=== PATIENT | male | born 1990 | race African-American/Black ===

== ENCOUNTER 2017-06-26 12:26 | Emergency (ER) | payer SELFPAY ==
[~2017-06-26] VITALS: Ht 182.9 cm; Wt 75.0 kg
[2017-06-26 12:31] VITALS: BP 146/87; PULSE 75; RESP 16; TEMP 97.8; O2SAT 100
--- NOTE | 2017-06-26 12:57 | PD ---
HPI Chief Complaint: Injury Time Seen by Provider: 12:37 Travel History International Travel<30 days: No Contact w/Intl Traveler<30days: No Traveled to known affect area: No History of Present Illness HPI 27-year-old male presents to emergency department complaining of right shoulder pain and right elbow pain after a mechanical fall that occurred yesterday. Patient states that she had a FOOSH type injury in the shower and landed on his hand, elbow, then shoulder. Pt points to his right acromioclavicular joint and lateral elbow for pain. States his shoulder pain is moderate, aching, increases with movement, and radiates along the posterior tricep. His elbow is TTP to lateral joint that increases with ROM, aching, and does not radiate. Pt recently had a right shoulder, labrum repair surgery June 07 and is still in a sling. He removed it yesterday to shower. Currently, he complains of peristent 'numbness' to the dorsal aspect of arm, unchanged since his surgery. Pt denies head trauma, head pain, neck pain, or back pain. No LOC or headache. Pt is due to follow up with his orthopedic doctor in 2 weeks. He is concerned that he 'messed up' the surgical repair. PFSH Past Surgical History Other Surgery: Yes (R LABRUM REPAIR, [place] IN) Social History Alcohol Use: No Tobacco Use: Yes Substance Use: No Allergies-Medications (Allergen,Severity, Reaction): Coded Allergies: No Known Allergies (Unverified , 06/26/17) Reported Meds & Prescriptions Reported Meds & Active Scripts Active Robaxin (Methocarbamol) 500 Mg Tab 500 Mg PO TID 3 Days Review of Systems Except as stated in HPI: all other systems reviewed are Neg Physical Exam Narrative GENERAL: Well-developed well-nourished in mild distress SKIN: Focused skin assessment warm/dry. HEAD: Atraumatic. Normocephalic. EYES: Pupils equal and round. No scleral icterus. No injection or drainage. ENT: No nasal bleeding or discharge. Mucous membranes pink and moist. NECK: Trachea midline. No JVD. CARDIOVASCULAR: Regular rate and rhythm. No murmur appreciated. RESPIRATORY: No accessory muscle use. Clear to auscultation. Breath sounds equal bilaterally. MUSCULOSKELETAL: No obvious deformities. No clubbing. No cyanosis. No edema. Right shoulder- TTP over acromioclavicular joint, no ecchymosis or obvious deformities Right elbow-TTP to lateral joint line without ecchymosis or obvious deformities Right hand and wrist- nontender to palpation, neurovascularly intact, full range of motion. Neurovascularly intact right upper extremity NEUROLOGICAL: Awake and alert. No obvious cranial nerve deficits. Motor grossly within normal limits. Normal speech. PSYCHIATRIC: Appropriate mood and affect; insight and judgment normal. Data Data Last Documented VS Vital Signs Date Time Temp Pulse Resp B/P (MAP) Pulse Ox O2 Delivery O2 Flow Rate FiO2 06/26/17 12:31 97.8 75 16 146/87 (106) 100 Orders Orders Shoulder, Complete (>2vws) (06/26/17 ) Acetamin-Hydrocod 325-5 Mg ([place] 5-325 (06/26/17 13:00) Elbow, Limited (Ap&Lat) (06/26/17 ) Ed Discharge Order (06/26/17 13:55) MDM Medical Decision Making Medical Screen Exam Complete: Yes Emergency Medical Condition: Yes Differential Diagnosis Right shoulder sprain, strain, fracture Left elbow sprain versus strain versus fracture versus contusion Narrative Course 27-year-old male presents to emergency department complaining of right shoulder pain and right elbow pain after a mechanical fall that occurred yesterday. Patient states that she had a FOOSH type injury in the shower and landed on his hand, elbow, then shoulder. Pt points to his right acromioclavicular joint and lateral elbow for pain. States his shoulder pain is moderate, aching, increases with movement, and radiates along the posterior tricep. His elbow is TTP to lateral joint that increases with ROM, aching, and does not radiate. Pt recently had a right shoulder, labrum repair surgery June 07 and is still in a sling. He removed it yesterday to shower. Currently, he complains of peristent 'numbness' to the dorsal aspect of arm, unchanged since his surgery. Pt denies head trauma, head pain, neck pain, or back pain. No LOC or headache. Pt is due to follow up with his orthopedic doctor in 2 weeks. He is concerned that he 'messed up' the surgical repair. Vital signs stable. Physical exam findings without evidence of fracture. Patient has persistent "numbness" to the distal aspect of the arm. Patient is neurovascularly intact, however. I spoke with radiology asst and she stated the patient had significant difficulty with the images of his elbow secondary to the shoulder pain. Pt given xrays. Pt advised to f/u with ortho. Patient given the on-call orthopedics name. Patient strongly advised follow-up. Patient and father inquired about an MRI. An MRI is not indicated in this instance as there is no change to his neurovascular status. Advised to follow-up with his primary care physician. Return to the emergency department for worsening or persistent symptoms. Diagnosis Primary Impression: Shoulder contusion Qualified Codes: S40.011A - Contusion of right shoulder, initial encounter Additional Impressions: Elbow contusion Qualified Codes: S50.01XA - Contusion of right elbow, initial encounter Muscle spasm Referrals: Antonio Grey Jr., MD Orthopedist Primary Care Physician Additional Instructions: Use ice or heat for symptom relief. Elevate the joint above the heart to reduce swelling. You may use compression with Lisandro wrap or similar to reduce swelling. If symptoms persist or worsen, return to the emergency department. Follow up with your primary care physician within 2 days. Scripts Methocarbamol (Robaxin) 500 Mg Tab 500 MG PO TID for Muscle Spasm for 3 Days, TAB 0 Refills Prov: Savi Santana 06/26/17 Disposition: 01 DISCHARGE HOME Condition: Stable Savi Santana Jun 26, 2017 12:57
[2017-06-26] MEDS ORDERED: ACETAMINOPHEN/HYDROcodone 325 MG/5 MG TAB PO ONE (13:00)
--- NOTE | 2017-06-26 13:34 | RADRPT ---
EXAM DATE/TIME: 06/26/2017 12:59 [facility] COMPARISON: No previous studies available for comparison. INDICATIONS : Right elbow pain post fall yesterday. MEDICAL HISTORY : None. SURGICAL HISTORY : Right shoulder. ENCOUNTER: Initial ACUITY: 2 days PAIN SCORE: 4/10 LOCATION: Right elbow. FINDINGS: Two view examination of the right elbow demonstrates no soft tissue swelling, joint effusion, fractur e or dislocation. Bony mineralization is normal. CONCLUSION: Negative for fracture or dislocation. Follow up in 7-10 days is suggested if symptoms persist. Lucio Peters MD FACR on June 26, 2017 at 13:32 Board Certified Radiologist. This report was verified electronically.
--- NOTE | 2017-06-26 13:35 | RADRPT ---
EXAM DATE/TIME: 06/26/2017 12:59 [facility] COMPARISON: No previous studies available for comparison. INDICATIONS : Right shoulder pain post fall yesterday. Patient states he had right shoulder labrum repair surgery o ne month ago. MEDICAL HISTORY : None. SURGICAL HISTORY : Right shoulder labrum. ENCOUNTER: Initial ACUITY: 2 days PAIN SCORE: 8/10 LOCATION: Right shoulder. FINDINGS: Multiple view examination of the right shoulder demonstrates no evidence of fracture or dislocation. The glenohumeral and acromioclavicular joints are maintained. There is normal range of motion betwe en internal and external rotation. Bony mineralization is normal. CONCLUSION: Negative for fracture or dislocation. Follow up in 7-10 days is suggested if symptoms persist. Lucio Peters MD FACR on June 26, 2017 at 13:33 Board Certified Radiologist. This report was verified electronically.
[2017-06-26] MEDS ORDERED: ROBA500T PO (13:55)
== END 2017-06-26 14:31 | disposition home or self-care (01) ==
LOC: PHEFT 12:26
DX: S40.011A Contusion of right shoulder, initial encounter (principal); S50.01XA Contusion of right elbow, initial encounter; W19.XXXA Unspecified fall, initial encounter; M62.838 Other muscle spasm; Z72.0 Tobacco use
CPT/HCPCS: 73030; 73070; 99284